=== PATIENT | male | born 2000 | race Caucasian/White ===

== ENCOUNTER 2025-01-11 14:25 | Outpatient (CLI) | payer OTHER, SELFPAY ==
--- NOTE | ~2025-01-11 | MR_ITS ---
EXAMINATION: MR brain/brain stem wo con DATE: 01/11/2025 14:59 INDICATION: Presyncope TECHNIQUE: Magnetic resonance imaging (MRI) of the brain and brainstem was performed without intraven ous contrast. Sequences included sagittal and axial T1-weighted SE, axial diffusion-weighted FS SE, a xial T2*-weighted GRE, axial T2-weighted FLAIR, and axial T2-weighted FSE. Apparent diffusion coeffic ient (ADC) maps were created. COMPARISON: None. FINDINGS: There are no areas of restricted diffusion to suggest acute infarction. No intracranial hemorrhage or abnormal intracranial mass lesion. There are no intraparenchymal signal abnormalities seen on the ot her pulse sequences. The ventricles are symmetric and normal in size. There are no abnormal extra-axi al fluid collections. Flow voids are seen in the cerebral arteries on the T2-weighted sequences consi stent with their expected patency. Right vertebral artery is dominant. Mucosal thickening in the left maxillary sinus. Visualized orbits and soft tissues are unremarkable. IMPRESSION: 1. Normal brain. Reviewed, dictated and finalized at location A. IMPRESSION: 1. Normal brain.
== END 2025-01-11 14:26 | disposition home or self-care (01) ==
PROVIDERS: PCP Physician Assistant; Visit Provider Physician Assistant
DX: R55 Syncope and collapse (principal)
CPT/HCPCS: 70551